=== PATIENT | male | born 1950 | race Hispanic/Latino ===

== ENCOUNTER → 2019-04-26 | Outpatient (CLI) | payer MEDICARE ==
[~2019-04-26] MED LIST: ALBU8.5H8 IH; ASPI-1197 PO; ATOR20TA65 PO; BISA-46 PO; DUTA.5 PO; EYEL1TOW2 TP; IBUP-2353 PO; ISOS30TA6 PO; NITR0.4T SL; TAMS0.4C32 PO; TRAM50TA4 PO; VITAMIN B12 PO
[2019-04-26 10:24] LABS: POTASSIUM 4.5 mmol/L (3.5-5.1)
== END | disposition home or self-care (01) ==
LOC: LAB 09:42
PROVIDERS: ATTEND Surgery
DX: K42.9 Umbilical hernia without obstruction or gangrene (principal)
CPT/HCPCS: 36415; 80048

== ENCOUNTER → 2019-05-02 | Outpatient (CLI) | payer MEDICARE ==
[~2019-05-02] MED LIST changes: +IOHEXOL-350 75 ML VIAL IV ONE
== END | disposition home or self-care (01) ==
LOC: RAH 09:22
PROVIDERS: ATTEND Surgery
DX: K42.9 Umbilical hernia without obstruction or gangrene (principal); K76.0 Fatty (change of) liver, not elsewhere classified; N20.0 Calculus of kidney; N28.1 Cyst of kidney, acquired; D73.89 Other diseases of spleen; N32.89 Other specified disorders of bladder; K57.30 Diverticulosis of large intestine without perforation or abscess without bleeding
CPT/HCPCS: 74177; Q9967

== ENCOUNTER 2019-06-27 11:04 | Emergency (ER) | payer MEDICARE ==
[~2019-06-27 11:04] MED LIST changes: -IBUP-2353 PO; +IBUP-2784 PO; -IOHEXOL-350 75 ML VIAL IV ONE
[2019-06-27] MEDS ORDERED: ONDANSETRON HCL 4 MG/2 ML VIAL ONE (11:43)
[2019-06-27] MEDS ORDERED: SODIUM CHLORIDE 0.9% 1000ML 1,000 ML IV ONE (11:43)
[2019-06-27 11:44] LABS: BASOPHILS % (AUTO) 0.4 % (0.0-5.0); EOSINOPHILS % (AUTO) 3.4 % (0.0-8.0); HEMATOCRIT 40.7 % (42-54); LYMPHOCYTES % (AUTO) 29.6 % (21.0-51.0); MEAN CORPUSCULAR HEMOGLOBIN 32.6 pg (27.0-33.0); MEAN CORPUSCULAR HGB CONC 34.5 g/dL (32.0-36.0); MEAN CORPUSCULAR VOLUME 94.6 fL (79-99); MONOCYTES % (AUTO) 10.5 % (3.0-13.0); NEUTROPHILS % (AUTO) 56.1 % (40.0-77.0); NUCLEATED RED BLOOD CELLS 0.1 % (0.0-0.19); PLATELET COUNT (AUTO) 192 K/uL (130-400); RED BLOOD CELL COUNT(AUTO) 4.31 MIL/uL (4.50-6.20); WHITE BLOOD COUNT (AUTO) 6.4 K/uL (4.8-10.8)
[2019-06-27 11:51] LABS: CREATININE 0.8 mg/dL (0.5-1.5); POTASSIUM 3.9 mmol/L (3.5-5.1)
[2019-06-27 11:55] LABS: INR 0.95 (0.85-1.15); PARTIAL THROMBOPLASTIN TIME 27.9 SEC (26.3-35.5)
[2019-06-27 11:57] LABS: ALBUMIN 3.8 g/dL (3.5-5.0); BILIRUBIN,DIRECT 0.2 mg/dL (0.0-0.3); BILIRUBIN,TOTAL 0.7 mg/dL (0.2-1.0); TOTAL PROTEIN, SERUM 7.2 g/dL (6.0-8.3)
== END 2019-06-27 14:07 | disposition home or self-care (01) ==
LOC: EDH 11:04
DX: K92.2 Gastrointestinal hemorrhage, unspecified (principal); E78.5 Hyperlipidemia, unspecified; Z72.0 Tobacco use
CPT/HCPCS: 36415; 74176; 80048; 80076; 82550; 83690; 85025; 85610; 85730; 93005; 96374; 99285; J2405; J7030

== ENCOUNTER 2019-07-13 10:01 | Emergency (ER) | payer MEDICARE ==
[2019-07-13 10:24] LABS: BASOPHILS % (AUTO) 0.6 % (0.0-5.0); EOSINOPHILS % (AUTO) 3.3 % (0.0-8.0); HEMATOCRIT 41.5 % (42-54); LYMPHOCYTES % (AUTO) 24.4 % (21.0-51.0); MEAN CORPUSCULAR HEMOGLOBIN 33.3 pg (27.0-33.0); MEAN CORPUSCULAR HGB CONC 34.8 g/dL (32.0-36.0); MEAN CORPUSCULAR VOLUME 95.7 fL (79-99); MONOCYTES % (AUTO) 11.1 % (3.0-13.0); NEUTROPHILS % (AUTO) 60.6 % (40.0-77.0); PLATELET COUNT (AUTO) 200 K/uL (130-400); RED BLOOD CELL COUNT(AUTO) 4.34 MIL/uL (4.50-6.20); RED CELL DISTRIBUTION WIDTH 13.2 % (11.0-15.5); WHITE BLOOD COUNT (AUTO) 7.5 K/uL (4.8-10.8)
[2019-07-13 10:30] LABS: CREATININE 0.8 mg/dL (0.5-1.5); POTASSIUM 4.2 mmol/L (3.5-5.1)
[2019-07-13] MEDS ORDERED: ONDANSETRON HCL 4 MG/2 ML VIAL ONE (10:33)
[2019-07-13] MEDS ORDERED: MORPHINE SULFATE 4 MG/1ML SYG ONE (10:34)
[2019-07-13 10:35] LABS: ALBUMIN 3.7 g/dL (3.5-5.0); BILIRUBIN,DIRECT 0.2 mg/dL (0.0-0.3); BILIRUBIN,TOTAL 0.7 mg/dL (0.2-1.0); TOTAL PROTEIN, SERUM 7.5 g/dL (6.0-8.3)
[2019-07-13 10:48] LABS: APPEARANCE,URINE Clear (CLEAR); BILIRUBIN,URINE Negative (NEGATIVE); COLOR,URINE Yellow (YELLOW); GLUCOSE, URINE (UA) Negative (NEGATIVE); KETONES,URINE Negative (NEGATIVE); LEUKOCYTE ESTERASE ,URINE Negative (NEGATIVE); NITRATE,URINE Negative (NEGATIVE); OCCULT BLOOD,URINE Negative (NEGATIVE); PH,URINE 6.5 (5.0-8.0); PROTEIN,URINE Trace mg/dL (NEGATIVE)
[2019-07-13 10:56] LABS: BACTERIA,URINE None Seen /HPF (None Seen); RBC,URINE 0-1 /HPF (0-1); WBC,URINE 0-1 /HPF (0-1)
[2019-07-13 10:57] LABS: FINE GRANULAR CASTS,URINE 0-2 /LPF (None Seen); MUCUS,URINE Few LPF (None Seen); SPERM,URINE Few /HPF (None Seen); SQUAMOUS EPITHELIAL CELL,UR 0-2 /HPF (0-2)
[2019-07-13] MEDS ORDERED: LIDOCAINE 5% TOPICAL PATCH TP ONE (12:58)
[2019-07-13] MEDS ORDERED: KETOROLAC TROMETHAMINE 15MG/ML ONE (12:58)
[2019-07-13] MEDS ORDERED: DIAZEPAM 5 MG TABLET ONE (12:59)
== END 2019-07-13 14:35 | disposition home or self-care (01) ==
LOC: EDH 10:01
DX: M62.838 Other muscle spasm (principal); I10 Essential (primary) hypertension; E78.5 Hyperlipidemia, unspecified
CPT/HCPCS: 36415; 74176; 80053; 80076; 81001; 85025; 93005; 96374; 96375; 99285; J1885; J2270; J2405

== ENCOUNTER → 2019-08-03 | Outpatient (CLI) | payer MEDICARE | END | disposition home or self-care (01) | LOC: RAH 15:46 | PROVIDERS: ATTEND Urology | DX: K59.00 Constipation, unspecified (principal); N20.0 Calculus of kidney | CPT/HCPCS: 74018 ==

== ENCOUNTER 2019-08-17 07:34 | Day surgery (SDC) | payer MEDICARE ==
[2019-08-14 12:39] VITALS: BP 114/66
[2019-08-14 12:48] LABS: BASOPHILS % (AUTO) 0.9 % (0.0-5.0); HEMATOCRIT 42.3 % (42-54); LYMPHOCYTES % (AUTO) 30.3 % (21.0-51.0); MEAN CORPUSCULAR HEMOGLOBIN 33.2 pg (27.0-33.0); MEAN CORPUSCULAR HGB CONC 34.4 g/dL (32.0-36.0); MEAN CORPUSCULAR VOLUME 96.4 fL (79-99); MONOCYTES % (AUTO) 9.7 % (3.0-13.0); NEUTROPHILS % (AUTO) 56.1 % (40.0-77.0); PLATELET COUNT (AUTO) 186 K/uL (130-400); RED BLOOD CELL COUNT(AUTO) 4.39 MIL/uL (4.50-6.20); RED CELL DISTRIBUTION WIDTH 13.1 % (11.0-15.5); WHITE BLOOD COUNT (AUTO) 5.9 K/uL (4.8-10.8)
[2019-08-14 13:05] LABS: INR 0.96 (0.85-1.15); PARTIAL THROMBOPLASTIN TIME 28.9 SEC (26.3-35.5); PROTHROMBIN TIME 10.1 SEC (9.6-11.6)
[2019-08-14 13:09] LABS: POTASSIUM 4.8 mmol/L (3.5-5.1)
[2019-08-14 13:25] LABS: APPEARANCE,URINE Clear (CLEAR); BILIRUBIN,URINE Negative (NEGATIVE); COLOR,URINE Dark Yellow (YELLOW); GLUCOSE, URINE (UA) Negative (NEGATIVE); KETONES,URINE Negative (NEGATIVE); LEUKOCYTE ESTERASE ,URINE Negative (NEGATIVE); NITRATE,URINE Negative (NEGATIVE); OCCULT BLOOD,URINE Negative (NEGATIVE); PROTEIN,URINE Negative (NEGATIVE)
[2019-08-14 13:43] LABS: BACTERIA,URINE Rare /HPF (None Seen); RBC,URINE 0-1 /HPF (0-1); SQUAMOUS EPITHELIAL CELL,UR Rare /HPF (0-2); WBC,URINE 0-1 /HPF (0-1)
[2019-08-17] VITALS (18 sets, daily range): BP systolic 120–157; BP diastolic 46–88
[~2019-08-17] VITALS: Ht 160 cm; Wt 73.8 kg
[~2019-08-17 07:34] MED LIST changes: +ALBUHFA IH; -BISA-46 PO; -DUTA.5 PO; -EYEL1TOW2 TP; -IBUP-2784 PO; -ISOS30TA6 PO; +MELO-106 PO; -NITR0.4T SL; -TAMS0.4C32 PO; -VITAMIN B12 PO
[2019-08-17] MEDS: CEFTRIAXONE SODIUM 1 GM IVP SCH ×2 (09:00→09:40)
[2019-08-17] MEDS ORDERED: LACTATED RINGERS 1000ML 1,000 ML IV ONE (09:05)
[2019-08-17] MEDS ORDERED: LIDOCAINE PF 2% 5ML ABBOJECT ONE (09:33)
[2019-08-17] MEDS ORDERED: PROPOFOL 10 MG/ML 20ML VIAL IV ONE (09:34)
[2019-08-17] MEDS ORDERED: FENTANYL CITRATE PF 50 MCG/1 ML 5ML AMP IV ONE (09:34)
[2019-08-17] MEDS ORDERED: KETOROLAC TROMETHAMINE 30MG/ML ONE (10:23)
--- NOTE | 2019-08-17 12:25 | NUR ---
late entry, instructed pt and family of straning the urine, no concerns voiced.
== END 2019-08-17 12:30 | disposition home or self-care (01) ==
LOC: DAH 07:34
PROVIDERS: ATTEND Urology
DX: N20.0 Calculus of kidney (principal); J44.9 Chronic obstructive pulmonary disease, unspecified; E78.5 Hyperlipidemia, unspecified; M19.90 Unspecified osteoarthritis, unspecified site; N40.0 Benign prostatic hyperplasia without lower urinary tract symptoms; Z86.73 Personal history of transient ischemic attack (TIA), and cerebral infarction without residual deficits; Z79.01 Long term (current) use of anticoagulants
CPT/HCPCS: 36415; 50590; 74018; 80048; 81001; 85025; 85610; 85730; 87088; 93005; A4215; A4222; A4223; A4600; A4663; J0696; J1885; J2001; J2704; J3010; J7120

== ENCOUNTER → 2024-10-09 | Outpatient (CLI) | payer MEDICARE ==
[~2024-10-09] MED LIST changes: +LEVE500V28 IV; +LEVO25TA9 PO; -MELO-106 PO; -TRAM50TA4 PO
--- NOTE | 2024-10-09 14:24 | HMCIMG ---
MR SPINAL CANAL, CERV WO CON REASON: M48.02 Spinal stenosis, cervical region COMPARISON: None TECHNIQUE: Routine cervical imaging protocol was performed. Exam was performed without IV contrast. FINDINGS: There is moderate interspace narrowing C4, C5 and C6. There are posterior ridges at multiple vertebral body levels. There are degenerative changes in the posterior elements as well. There is normal vertebral body alignment. Axial images show patent C2-3 interspace. There is a large central disc protrusion at the C3-4, AP diameter in the midline is decreased to between 5 and 6 mm. There is focal concavity of the anterior cord with effacement of surrounding CSF spaces. Neural foramina appear preserved. C4-5 shows broad-based annular bulge along with posterior degenerative changes. There is severe spinal stenosis, AP diameter of the canal is approximately 4 mm. There is focal increased signal in the cord at this level consistent with edema or myelomalacia. C5-6 shows only mild canal stenosis, AP diameter between 7 and 8 mm. C6-7 interspaces well preserved, AP diameter is between 8 and 9 mm. There is severe bilateral neural foraminal narrowing at C4-5, and C5-6 and at C6-7. IMPRESSION: 1. Severe cervical spondylosis, there is severe spinal stenosis at C4-5 with a BB diameter 4 mm, there is abnormal signal in the cord at this level. 2. There are multiple additional areas of canal narrowing and foraminal narrowing as described above.
== END | disposition home or self-care (01) ==
LOC: RAH 13:02
PROVIDERS: ATTEND Family Medicine
DX: M47.22 Other spondylosis with radiculopathy, cervical region (principal); M48.02 Spinal stenosis, cervical region; M50.10 Cervical disc disorder with radiculopathy, unspecified cervical region
CPT/HCPCS: 72141